=== PATIENT | male | born 1945 | race Asian ===

== ENCOUNTER 2023-01-15 22:18 | Emergency (ER) | payer OTHER ==
[~2023-01-15] VITALS: Ht 154.9 cm; Wt 47.0 kg
[2023-01-15] MEDS ORDERED: HYDR25TA2 PO (22:40)
[2023-01-15] MEDS ORDERED: GABA-1216 PO (22:40)
[2023-01-15] MEDS ORDERED: LOSA-382 PO (22:40)
[2023-01-15] MEDS ORDERED: MELO-381 PO (22:40)
[2023-01-15] MEDS ORDERED: CHOL25TA4 PO (22:40)
[2023-01-15] MEDS ORDERED: MONT-35 PO (22:40)
[2023-01-15 22:58] LABS: EOSINOPHILS % (AUTO) 2.2 % (1.0-6.0); HEMATOCRIT 34.6 % (41-53); HEMOGLOBIN 11.5 g/dL (13.5-17.5); LYMPHOCYTES # (AUTO) 2.2 K/uL (1.0-4.8); LYMPHOCYTES % (AUTO) 27.9 % (22.0-44.0); MEAN CORPUSCULAR HEMOGLOBIN 30.6 pg (26.0-34.0); MEAN CORPUSCULAR HGB CONC 33.4 G/dL (31.0-37.0); MEAN CORPUSCULAR VOLUME 92 fL (80-100); MONOCYTES # (AUTO) 0.6 K/uL (0.1-1.0); MONOCYTES % (AUTO) 7.6 % (2.0-9.0); NEUTROPHILS # (AUTO) 4.7 K/uL (1.8-7.7); NEUTROPHILS % (AUTO) 61.3 % (40.0-70.0); PLATELET COUNT (AUTO) 392 K/uL (150-450); RED BLOOD CELL COUNT(AUTO) 3.77 MIL/uL (4.50-5.90); RED CELL DISTRIBUTION WIDTH 13.6 % (11.5-14.5)
[2023-01-15] MEDS ORDERED: SODIUM CHLORIDE 0.9% 1,000 ML IV ONE (23:00)
[2023-01-15 23:06] LABS: ANION GAP 10 mmol/L (8-16); CALCIUM, TOTAL 8.6 mg/dL (8.8-10.5); CARBON DIOXIDE 29 mmol/L (22-29); CHLORIDE 104 mmol/L (98-107); CREATININE 0.96 mg/dL (0.60-1.30); GLOMERULAR FILTR. RATE CALC > 60 mL/min (>60); GLUCOSE,RANDOM 125 mg/dL (70-110); POTASSIUM 3.8 mmol/L (3.5-5.1); SODIUM SERUM 143 mmol/L (136-145)
[2023-01-15 23:11] LABS: PROTHROMBIN TIME 10.6 SEC (9.4-11.6)
[2023-01-15 23:12] LABS: ALANINE AMINOTRANSFERASE 26 U/L (12-78); ALBUMIN 3.8 g/dL (3.4-5.0); ALKALINE PHOSPHATASE 61 U/L (46-116); ASPARTATE AMINOTRANSFERASE 18 U/L (15-37); BILIRUBIN,TOTAL 0.4 mg/dL (0.1-1.0); TOTAL PROTEIN, SERUM 7.8 g/dL (6.4-8.2)
[2023-01-15 23:16] LABS: APPEARANCE,URINE CLEAR (CLEAR); BILIRUBIN,URINE NEGATIVE (NEGATIVE); GLUCOSE, URINE (UA) NEGATIVE (NEGATIVE); KETONES,URINE NEGATIVE (NEGATIVE); LEUKOCYTE ESTERASE ,URINE NEGATIVE (NEGATIVE); NITRATE,URINE NEGATIVE (NEGATIVE); OCCULT BLOOD,URINE NEGATIVE (NEGATIVE); PH,URINE 7.5 (5.0-8.0); PROTEIN,URINE NEGATIVE (NEGATIVE); SPECIFIC GRAVITIY, URINE 1.009 (1.003-1.030); UROBILINOGEN,URINE <=1.0 mg/dL (<=1.0)
[2023-01-15 23:17] LABS: B-TYPE NATRIURETIC PEPTIDE 68 pg/mL (0-100)
[2023-01-16] MEDS ORDERED: POLY119P3 PO (02:59)
[2023-01-16 03:23] VITALS: TEMP 97.7
[2023-01-16] MEDS ORDERED: LOSARTAN POTASSIUM 25 MG TABLET PO ONE (03:30)
[2023-01-16 03:56] VITALS: BP 163/91; PULSE 65; RESP 16
== END 2023-01-16 03:57 | disposition home or self-care (01) ==
LOC: EMS 22:20
DX: R42 Dizziness and giddiness (principal); K59.00 Constipation, unspecified; J45.909 Unspecified asthma, uncomplicated; I10 Essential (primary) hypertension
CPT/HCPCS: 70450; 74022; 80053; 81003; 83880; 84484; 85025; 85610; 85730; 93005; 96360; 99285; 36415-L1; 36415-TC

== ENCOUNTER 2025-04-12 11:42 | Emergency (ER) | payer OTHER ==
[~2025-04-12] VITALS: Ht 154.9 cm; Wt 59.5 kg
[~2025-04-12 11:42] MED LIST: CHOL25TA4 PO; GABA-1216 PO; HYDR25TA2 PO; LOSA-382 PO; MELO-107 PO; MONT-35 PO; POLY119P3 PO
[2025-04-12 12:05] VITALS: TEMP 98.4
[2025-04-12] MEDS ORDERED: AMLO2.5T96 PO (12:05)
[2025-04-12] MEDS ORDERED: ALBU18HF12 IH (12:05)
[2025-04-12] MEDS ORDERED: LOSA-30 PO (12:05)
[2025-04-12] MEDS ORDERED: ATOR20TA PO (12:05)
[2025-04-12] MEDS ORDERED: FLUT1BLS11 IH (12:05)
[2025-04-12] MEDS ORDERED: ASPI-1450 PO (12:05)
[2025-04-12] MEDS ORDERED: CETI10TA77 PO (12:05)
[2025-04-12] MEDS ORDERED: MAG355OR38 PO (12:05)
[2025-04-12] MEDS ORDERED: PANT-31 PO (12:05)
[2025-04-12 12:42] LABS: APPEARANCE,URINE CLEAR (CLEAR); GLUCOSE, URINE (UA) NEGATIVE (NEGATIVE); LEUKOCYTE ESTERASE ,URINE NEGATIVE (NEGATIVE); NITRATE,URINE NEGATIVE (NEGATIVE); OCCULT BLOOD,URINE NEGATIVE (NEGATIVE); SPECIFIC GRAVITIY, URINE 1.007 (1.003-1.030)
[2025-04-12 12:53] LABS: PLATELET COUNT (AUTO) 320 K/uL (150-450); RED BLOOD CELL COUNT(AUTO) 4.11 MIL/uL (4.50-5.90); RED CELL DISTRIBUTION WIDTH 14.1 % (11.5-14.5); WHITE BLOOD COUNT (AUTO) 7.7 K/uL (4.5-11.0)
[2025-04-12 13:03] LABS: CALCIUM, TOTAL 9.4 mg/dL (8.8-10.5); CREATININE 1.09 mg/dL (0.60-1.30); GLOMERULAR FILTR. RATE CALC > 60 mL/min (>60); GLUCOSE,RANDOM 96 mg/dL (70-110); SODIUM SERUM 140 mmol/L (136-145); UREA NITROGEN, BLOOD 23 mg/dL (7-18)
[2025-04-12 13:10] LABS: TROPONIN I-HIGH SENSITIVITY 7 ng/L (<76)
[2025-04-12] MEDS: METOCLOPRAMIDE HCL 10 MG TABLET PO ONE (14:50)
[2025-04-12] MEDS: ACETAMINOPHEN 500 MG TABLET PO ONE (14:51)
[2025-04-12] MEDS ORDERED: FLUT1AER IH (14:52)
[2025-04-12] MEDS ORDERED: ASPI-1444 PO (14:52)
[2025-04-12] MEDS ORDERED: MINTOX PO (14:52)
[2025-04-12] MEDS ORDERED: TAMS0.4C94 PO (14:52)
[2025-04-12 16:41] VITALS: BP 152/82; PULSE 79; RESP 18; O2SAT 98
== END 2025-04-12 17:42 | disposition home or self-care (01) ==
LOC: EMS 11:43
DX: R42 Dizziness and giddiness (principal); R51.9 Headache, unspecified; I10 Essential (primary) hypertension; J45.909 Unspecified asthma, uncomplicated; M19.90 Unspecified osteoarthritis, unspecified site; Z79.1 Long term (current) use of non-steroidal anti-inflammatories (NSAID); Z79.51 Long term (current) use of inhaled steroids; Z79.82 Long term (current) use of aspirin; Z79.899 Other long term (current) drug therapy
CPT/HCPCS: 70450; 71045; 80048; 81001; 84484; 85025; 93005; 99285; 36415-L1; 36415-TC